=== PATIENT | male | born 1950 | race Caucasian/White ===

== ENCOUNTER 2024-12-30 10:49 | Inpatient (IN) | payer MEDICARE, OTHER, SELFPAY ==
[2024-12-30] VITALS (9 sets, daily range): BP systolic 115–149; BP diastolic 54–80; BMI 29.0; BMI 19.4; BMI 28.8
[2024-12-30 08:52] LABS: Hematocrit 28.2 % (39.0-52.0); Hemoglobin 9.9 g/dL (13.0-18.0); Mean Corp Hgb Conc. 35.1 g/dL (33.0-37.0); Mean Corpuscular Volume 92.5 fL (80.0-94.0); Nucleated Red Blood Cells % 0 % (-); Platelet Count 473 10^3/uL (130-400); Red Cell Dist. Width 14.6 % (11.5-14.5)
--- NOTE | 2024-12-30 09:01 | ED.GENMED ---
History of Present Illness
General
Chief Complaint: Male Genito-Urinary Symptoms
Source: patient
Exam Limitations: none
Time Seen by Provider: 12/30/24 08:59
Nursing documentation reviewed up to this point in time: agreed with
History of Present Illness
History of Present Illness:
Note:
CHIEF COMPLAINT(S)
Urinary retention since 1 a.m.
HISTORY OF PRESENT ILLNESS
The patient is a 74-year-old male who presents with urinary retention. He last urinated at 1 a.m. and has not been able to do so since. There is no prior history of urinary retention. Approximately three weeks ago, the patient underwent a Whipple
procedure. A bladder scan revealed 11 mL of fluid in the bladder, indicating minimal retention. The patient is not currently experiencing an urge to urinate and has no discomfort related to the retention. He is otherwise feeling well post-procedure.
Initial blood work is available with some results pending. The patient�s blood glucose was recently measured at 150 mg/dL, although it decreased slightly to 142 mg/dL. The patient is not presently receiving insulin.
EXTERNAL RECORDS REVIEWED
The patient underwent a Whipple procedure on December 11 at [facility].
CHRONIC MEDICAL CONDITIONS SIGNIFICANTLY AFFECTING CARE
The patient developed diabetes mellitus following his recent surgical procedure and is treated with insulin when necessary.
SOCIAL DETERMINANTS AFFECTING HEALTH
There are no specific social determinants affecting health mentioned in the conversation.
MEDICATIONS
Patient is unsure of his medications but mentioned taking a 'blood pressure pill.'
PHYSICAL EXAM
General: Alert, no acute distress.
Skin: Warm, dry.
Head: Normocephalic, atraumatic.
Neck: Supple, trachea midline.
Eye Ears, nose, mouth and throat: Oral mucosa moist.
Cardiovascular: Normal peripheral perfusion, no edema.
Respiratory: Respirations are non-labored.
Gastrointestinal: Abdomen nondistended.j Healing midline horizontal incision scar
Back: Normal range of motion, normal alignment.
Musculoskeletal: Normal ROM, normal strength.
Neurological: Alert and oriented to person, place, time, and situation, no focal neurological deficit observed.
Psychiatric: Cooperative, appropriate mood & affect.
PLAN
- Administer intravenous fluids to assist with urination.
- Monitor urine output and perform urine testing to check for infection.
- Continue observations of the patients blood glucose levels without administering insulin, unless further indicated.
- Determine necessity for hospital admission based on further findings.
DIFFERENTIAL DIAGNOSIS
The Differential Diagnosis includes, in no particular order and is not limited to:
1. Acute urinary retention
2. Post-surgical changes
3. Urinary tract infection
4. Diabetic autonomic neuropathy
5. Medication side effect
6. Bladder outlet obstruction
7. Neurogenic bladder
8. Renal insufficiency
9. Dehydration
10. Prostate enlargement
CARE-UPDATE
12/30/24 - 09:59
Patient remains symptomatic with hyponatremia. Unable to obtain a urine specimen at this time. Patient initially receiving normal saline. Contacted Nephrology for input. Plan to admit to hospitalist team for further management and monitoring.
EKG
My independent EKG interpretation is:
- Time of EKG: Not specified
- Rhythm: Sinus bradycardia
- Heart Rate: 56 bpm
- MI Interval: First-degree AV block noted
- QRS Duration: Normal
- Dewitt: Not specified
- Abnormalities: No evidence of ischemia detected
Disposition:
SUMMARY OF ENCOUNTER
The patient, a 74-year-old male, presented to the emergency department with urinary retention since 1 a.m. He had not urinated since then and denied any prior history of similar issues. Approximately three weeks prior, the patient underwent a
Whipple procedure. A bladder scan showed minimal retention of 11 mL. Blood glucose levels were slightly elevated, indicating diabetes mellitus post-surgery. The patient was otherwise stable, without experiencing discomfort or urgency to urinate.
Hyponatremia was noted, and normal saline was administered. Due to ongoing symptoms, hospital admission was considered for further management and monitoring.
DISPOSITION
Admit to hospitalist team for further management and monitoring.
ASSESSMENT
The patient is presenting with acute urinary retention possibly related to post-surgical changes following a Whipple procedure. Hyponatremia and newly developed diabetes following the surgery are additional concerns affecting the current medical
situation.
MANAGEMENT OF THE PATIENTS CARE WAS DISCUSSED WITH
Nephrology was contacted for input regarding the patients hyponatremia.
PLAN
- Administer intravenous fluids to assist with urination.
- Monitor urine output and check for infection through urine testing.
- Observe blood glucose levels carefully, with insulin to be withheld unless further indicated.
- Admit to the hospitalist team to manage hyponatremia and monitor overall condition.
INDEPENDENT REVIEW OF LABS AND INTERPRETATION OF TESTS
My independent review of blood glucose indicates mild elevation with levels at 150 mg/dL initially, later decreasing slightly to 142 mg/dL.
MEDICATION RECONCILIATION
- Normal saline was administered to address hyponatremia.
MEDICAL DECISION MAKING
- Complexity of Data Reviewed: Chronic conditions affecting care include post-surgical status following a Whipple procedure and newly developed diabetes mellitus. The differential diagnosis considered included acute urinary retention, post-surgical
changes, urinary tract infection, diabetic autonomic neuropathy, medication side effects, bladder outlet obstruction, neurogenic bladder, renal insufficiency, dehydration, and prostate enlargement.
Category 1
Non-emergency department records reviewed: Reviewed previous surgical records noting the Whipple procedure at [facility].
Category 3
Discussion of management with Nephrology was undertaken to address the patients hyponatremia.
DIAGNOSIS
- Acute urinary retention (R33)
- Hyponatremia (E87.1)
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
- Postprocedural state (Z98.890)
Phy Exam
Physical Exam
Physical Exam:
.
Course
Orders/Labs/Results
Orders:
Orders
12/30/24 08:43
Complete Blood Count/With Diff Urgent
Comprehensive Metabolic Panel Urgent
Serum Osmolality Urgent
Comment: ADD ON
12/30/24 09:00
Urinalysis Reflex To Culture Urgent
12/30/24 09:08
0.9% Sodium Chloride 1000 ml [Nss] 1,000 ml IV BOLUS
12/30/24 09:27
Urine Sodium Urgent
12/30/24 09:28
Add On- LAB Urgent
Tests Added?: serum osmolality
Osmolality, Random Urine Urgent
12/30/24 09:45
Electrocardiogram (*1) Urgent
Reason for Study: Other
Other Reason for Exam: low sodium
EKG- Treatment ONCE
Abnormal Lab Results
12/30/24
08:43
RBC 3.05 L 10^6/uL
(4.70-6.10)
Hgb 9.9 L g/dL
(13.0-18.0)
Hct 28.2 L %
(39.0-52.0)
MCH 32.5 H pg
(27.0-31.0)
RDW 14.6 H %
(11.5-14.5)
Plt Count 473 H 10^3/uL
(130-400)
Absolute Monos (auto) 1.4 H 10^3/uL
(0.1-0.6)
Lymphocytes % 18.2 L %
(20.5-51.1)
Monocytes % 15.2 H %
(1.7-9.3)
Sodium 119 L* mmol/L
(135-145)
Chloride 90 L mmol/L
(98-107)
Creatinine 0.5 L mg/dL
(0.7-1.3)
Glucose 135 H mg/dl
(70-99)
12/30/24 08:43
12/30/24 08:43
Vital Signs
Initial and Last Documented VS:
Initial Vital Signs
Temp Pulse Resp Pulse Ox
99.0 F 65 18 97
12/30/24 08:34 12/30/24 08:34 12/30/24 08:34 12/30/24 08:34
Last Documented Vital Signs
Temp Pulse Resp BP Pulse Ox
99.0 F 61 10 125/64 96
12/30/24 08:34 12/30/24 09:37 12/30/24 09:37 12/30/24 08:45 12/30/24 09:37
*Pulse Oximetry
SaO2: 97
Oxygen Mode of Delivery: Room air
Patient hypoxic: no
*Critical Care Note
Total Time (30-74mins, 75-104mins- exclusive of procedures): Not Applicable
ED Attending Note
-
Portions of this chart may have been created with voice recognition software.� Occasional wrong word or��sound alike� substitutions may have occurred due to the inherent limitations of voice recognition software.
Discharge Plan
Departure
Patient Disposition: Admit
Date of Disposition: 12/30/24
Time of Disposition: 09:56
Admit to: IMU
Presentation/result/management discussed w/ accepting MD/DO: Hospitalist
Patient with high blood pressure during this ER visit?: Yes
Discharge Problem:
Acute hyponatremia, Urinary urgency
Referrals:
UNKNOWN - PT DOES,NOT KNOW [Unknown Provider]
Interventions
Interventions:
*Risk Screen - Suicide Last Done: 12/30/24 08:40
*General Assessment Last Done: 12/30/24 08:40
*Neglect/Abuse Screening Last Done: 12/30/24 08:40
*ED- Fall Risk Assessment Last Done: 12/30/24 08:40
*ED COVID-19 Vaccine History Last Done: 12/30/24 08:40
ED-Male Genitourinary Assessment Last Done: 12/30/24 08:59
Discharge Date and Time
Print Language: GREEK
[2024-12-30] MEDS: NSS 1000 IV (09:10)
[2024-12-30 09:25] LABS: ALT (SGPT) 36 U/L (0-50); AST (SGOT) 42 U/L (17-59); Albumin 3.5 g/dl (3.5-5.0); Alkaline Phosphatase 113 U/L (38-126); Blood Urea Nitrogen 14 mg/dl (9-20); Calcium 9.1 mg/dl (8.4-10.2); Carbon Dioxide 22 mmol/L (22-30); Chloride 90 mmol/L (98-107); Estimated Creatinine Clearance 103 ml/min; Glucose 135 mg/dl (70-99); Potassium 5.1 mmol/L (3.5-5.1); Sodium 119 mmol/L (135-145); Total Protein 6.8 g/dl (6.3-8.2); eGFR > 60.00
--- NOTE | 2024-12-30 10:37 | HPS.HSE ---
Family Physician
-
Family Physician: CARLY Bunch
Chief Complaint
-
urinary retention
History of Present Illness
74yo M with PMHX of pancreatic duct CA s/p Whipple on 12/11/24 in [facility], HTN, GERD, CAD, new DM after pancreatic resection came with 1 day of urine dribling with dyscomfort in meatus and lower abdominal dyscomfort. Also found acute
hyponatremia, but does not report polydypsia or any significant postOP pains.
Medical History
Past Medical History
Past Medical History: Reports Other
Additional Past Medical History:
See HPI
Past Surgical History: Reports Other
Additional Past Surgical History:
see HPI
Social History
Tobacco: Non-smoker
Alcohol: Former
Drug: None
Family History
Family History: Not pertinent
Allergies / Home Medications
Allergies reflects when Allergies were last updated in [facility].
Home Medications with original date entered in [facility]
Allergy/Medication List:
Allergies
Allergy/AdvReac Type Severity Reaction Status Date / Time
No Known Allergies Allergy Unverified 12/30/24 08:42
Home Medications
amlodipine 10 mg tablet 10 mg PO DAILY 12/30/24
ascorbic acid (vitamin C) 1,000 mg tablet 1,000 mg PO DAILY 12/30/24
aspirin 81 mg tablet 81 mg PO DAILY 12/30/24
cholecalciferol (vitamin D3) 10 mcg (400 unit) tablet 10 mcg PO DAILY 12/30/24
ferrous sulfate 325 mg (65 mg iron) tablet 325 mg PO DAILY 12/30/24
insulin aspart U-100 100 unit/mL (3 mL) subcutaneous pen 1 sliding scale dose SC DIRECTED 12/30/24
lansoprazole 15 mg capsule,delayed release 15 mg PO DAILY 12/30/24
metoclopramide HCl 10 mg tablet 10 mg PO QID 12/30/24
oxycodone 5 mg tablet 5 mg PO QID 12/30/24
Review of Systems
-
History Source: Patient
A 12 point ROS was completed and negative except as noted: Yes
Abdomen/GI: Reports See HPI
: Reports See HPI
Physical Exam
Vital Signs
Vital Signs
Temp Pulse Resp BP Pulse Ox
99.0 F 59 14 122/54 97
12/30/24 08:34 12/30/24 10:00 12/30/24 10:00 12/30/24 10:00 12/30/24 10:00
Physical Exam
General: Well Developed, Well Nourished and No Apparent Distress
HEENT: NormoCephalic, Anicteric and Moist mucous membranes
Respiratory: Clear; No Wheezes or Crackles
Cardiac: S1/S2 and Regular Rhythm; No Tachycardia
GI: Soft, Non Tender, Non Distended and Other (well healing upper abdomen scar)
Genito-urinary: No costovertebral tender
Musculoskeletal: No Clubbing, No Cyanosis and No Edema
Skin: Warm
Neuro: Awake, Alert, Oriented and AO x 3
Psych: Calm
Laboratory Results
-
12/30/24 08:43
12/30/24 08:43
Laboratory Results
Total Bilirubin 0.4 mg/dl (0.2-1.3) 12/30/24 08:43
AST 42 U/L (17-59) 12/30/24 08:43
ALT 36 U/L (0-50) 12/30/24 08:43
Alkaline Phosphatase 113 U/L (38-126) 12/30/24 08:43
Data Reviewed
-
Lab Data: Labs Reviewed by me
Impression/Plan
-
A/P:
#Dysuria, concern for UTI
With recent Whipple procedure and new urinary retention - CT abd/pelvis reasonable
UA and Ucx pending at the time of admission
Start Abx after UA
#Hyponatremia, acute
could be 2/2 urinary retention
However bladder scan in ED showed minimal amount of urine
Pending straight cath
Nephrology consult
q6h BMP
target corrction 4-6meq/24h, will need plan after UOsm, August
S/P 1 L NS in ED
#New DM
Accuchecks, insulin SS, DM diet
PAtient also had continious blood glucose monitor
#Anemia
#Thrombocytosis
possibly reactive
follow CBC
Anemia w/u
FOBT
DVT ppx Lovenox
Full code
I have spent at least 78min reviewing chart, test results, communication with consultants, family, RN and providing direct patient care
[2024-12-30 10:59] LABS: Urine Character Clear (Clear)
--- NOTE | 2024-12-30 11:21 | CM ---
CM reviewed chart and met with pt and bedside in ED. Lives with in split level home, [address], has bathroom on both levels. Independent in ADLs, personal care and ambulation at baseline. Was discharged one week ago from [facility] after Whipple
procedure.
Confirms prescription coverage.
Currently has VN, ? [facility]. No hx SNF.
PCP: Yobani Nguyen
Pharmacy: [address]
Anticipate discharge home with resumption of VN, CM will continue.
[2024-12-30] MEDS: SODIUM CHLORIDE 3% 250 IV (11:35)
[2024-12-30 13:58] LABS: Blood Urea Nitrogen 11 mg/dl (9-20); Calcium 8.5 mg/dl (8.4-10.2); Carbon Dioxide 25 mmol/L (22-30); Chloride 92 mmol/L (98-107); Estimated Creatinine Clearance 103 ml/min; Glucose 145 mg/dl (70-99); Sodium 122 mmol/L (135-145); eGFR > 60.00
--- NOTE | 2024-12-30 14:15 | PTCARENOTE ---
12/30- Patient transferred and oriented to unit without issue. AAOX3, flat affect. Teley #49- currently sinus arrhythmia with BBB and PVCs. Skin=pale/warm/dry. +PulsesX4. Transverse anterior upper abdomen incision open to air, fully approximated
and almost healed. [place] with steristrips CDI. Some granulation forming at BL ends of incision. RLQ has softly granulated puncture wound from Whipple Drain, open to air. [place]/dry. Patient requests medical records, water and food. Educated patient
on diet and plan of care. Advised about process of obtaining medical records. He verbalized understanding. Denies any issues at this time.
[2024-12-30 15:27] LABS: Blood Urea Nitrogen 10 mg/dl (9-20); Calcium 9.1 mg/dl (8.4-10.2); Carbon Dioxide 24 mmol/L (22-30); Chloride 92 mmol/L (98-107); Estimated Creatinine Clearance 99 ml/min; Glucose 166 mg/dl (70-99); Potassium 5.8 mmol/L (3.5-5.1); Sodium 123 mmol/L (135-145); eGFR > 60.00
[2024-12-30] MEDS: STERILE WATER FOR INJECTION 10 ML IV (15:51)
[2024-12-30] MEDS: ROCEPHIN 1000 MG IV (15:51)
--- NOTE | 2024-12-30 15:58 | W.CON.NEPH ---
Consultation
-
Date/Time Consultation Requested: December 30, 2024 at 9 AM
Date/Time Consultation Performed: December 30, 2024 at 10 AM
Requesting Provider: Dr. Pierce
Performing Provider: Dr. Martin
Reason for Consultation: Hyponatremia
Medical History
-
Chief Complaint: Hyponatremia
History of Present Illness:
74yo M with PMHX of pancreatic duct CA s/p Whipple on 12/11/24 in [facility], HTN, GERD, CAD, new DM after pancreatic resection came with 1 day of urine dribling with dyscomfort in meatus and lower abdominal dyscomfort. Also found acute
hyponatremia, but does not report polydypsia or any significant postOP pains..
No obstructive pathology on imaging.
Renal consult for sodium 119
Past Medical History
PMHX of pancreatic duct CA s/p Whipple on 12/11/24 in [facility], HTN, GERD, CAD, new DM
Social History
Tobacco: Non-Smoker
Alcohol: None
Family History
Family History: Not Pertinent
Allergies / Home Medications
Allergy/AdvReac Type Severity Reaction Status Date / Time
No Known Allergies Allergy Unverified 12/30/24 08:42
�Medication �Instructions �Recorded �Confirmed �Type
amlodipine 10 mg tablet 10 mg PO DAILY Blood Pressure 12/30/24 12/30/24 History
ascorbic acid (vitamin C) 1,000 mg 1,000 mg PO DAILY Supplement 12/30/24 12/30/24 History
tablet
aspirin 81 mg tablet 81 mg PO DAILY Blood Clot 12/30/24 12/30/24 History
Prevention/Tx
cholecalciferol (vitamin D3) 10 10 mcg PO DAILY Supplement 12/30/24 12/30/24 History
mcg (400 unit) tablet
ferrous sulfate 325 mg (65 mg 325 mg PO DAILY Supplement 12/30/24 12/30/24 History
iron) tablet
insulin aspart U-100 100 unit/mL 1 sliding scale dose SC 12/30/24 12/30/24 History
(3 mL) subcutaneous pen DIRECTED Diabetes
lansoprazole 15 mg capsule,delayed 15 mg PO DAILY Gastrointestinal 12/30/24 12/30/24 History
release Issue
metoclopramide HCl 10 mg tablet 10 mg PO QID NAUSEA 12/30/24 12/30/24 History
oxycodone 5 mg tablet 5 mg PO QID Pain 12/30/24 12/30/24 History
Review of Systems
-
Generalized weakness abdominal pain
All other systems: Negative unless noted
Physical Exam
Vital Signs
Vital Signs
Temp Pulse Resp BP Pulse Ox
97.7 F 82 18 149/80 98
12/30/24 14:56 12/30/24 14:56 12/30/24 14:56 12/30/24 14:56 12/30/24 14:56
Lab Results
WBC 9.3 10^3/uL (4.8-10.8) 12/30/24 08:43
RBC 3.05 10^6/uL (4.70-6.10) L 12/30/24 08:43
Hgb 9.9 g/dL (13.0-18.0) L 12/30/24 08:43
Hct 28.2 % (39.0-52.0) L 12/30/24 08:43
Plt Count 473 10^3/uL (130-400) H 12/30/24 08:43
eGFR > 60.00 12/30/24 14:36
Albumin 3.5 g/dl (3.5-5.0) 12/30/24 08:43
Physical Exam
General no acute distress
HEENT no cephalic atraumatic extraocular muscle intact no scleral icterus no JVD neck supple
lungs clear to auscultation bilateral
heart regular S1-S2 positive
abdomen soft nontender positive bowel sounds
extremities no edema pulses present bilateral
Neurologically nonfocal alert and oriented x 3
Skin no lesions no abrasions no petechiae
Psych normal affect no bizarre behavior
Data Reviewed
-
CT Scan: Image Personally Visualized and interpreted
Labs: Labs Reviewed by me, Discussed with Physician, Discussed with Nurse, Discussed with Patient and Discussed with Family
Assessment/Plan
-
74yo M with PMHX of pancreatic duct CA s/p Whipple on 12/11/24 in [facility], HTN, GERD, CAD, new DM after pancreatic resection came with 1 day of urine dribling with dyscomfort in meatus and lower abdominal dyscomfort. Also found acute
hyponatremia, but does not report polydypsia or any significant postOP pains..
No obstructive pathology on imaging.
Renal consult for sodium 119
Impression.
Hyponatremia 119
Status post Whipple
New diabetes
Hypertension
Plan.
Status post 3% saline for about an hour and a half discontinued repeat stat labs 123 serum sodium
Continue to hold IV fluids
Recheck BMP every 4 to 6 hours to avoid overcorrection
Urine sodium 87 with a urine osmolality 345 although I believe this was collected while 3% saline was running and he did get normal saline prior to that
Repeat labs pending for 2000 hr
Discussed with all physicians involved
[2024-12-30 16:44] LABS: Glucose - Point of Care 160 mg/dl (70-99)
[2024-12-30] MEDS: NOVOLOG FLEXPEN-LOW RESISTANCE 1 UNITS SC (16:47)
--- NOTE | 2024-12-30 19:28 | W.PN.UPDATE ---
Update Note
Progress Note Update
Hyperkalemia with hyponatremia
Insulin IV, Dextrose, Lokelma
Check aldosterone, renin, TSH, Cortisol in AM
Since no hypotension, no hypoglycemia and no hypothermia - unlikely acute adrenal insufficiency, however cannot exclude indolent process
[2024-12-30] MEDS: LOKELMA 10 GRAM PO (20:01)
[2024-12-30 20:02] LABS: Glucose - Point of Care 141 mg/dl (70-99)
[2024-12-30] MEDS: DEXTROSE 50% SYRINGE 25 GRAMS IV (20:02)
[2024-12-30] MEDS: NOVOLIN R 0.1 UNITS IV (20:02)
[2024-12-30 21:11] LABS: Glucose - Point of Care 71 mg/dl (70-99)
[2024-12-30 21:28] LABS: Blood Urea Nitrogen 12 mg/dl (9-20); Calcium 8.7 mg/dl (8.4-10.2); Carbon Dioxide 22 mmol/L (22-30); Chloride 93 mmol/L (98-107); Estimated Creatinine Clearance 99 ml/min; Glucose 78 mg/dl (70-99); Potassium 5.3 mmol/L (3.5-5.1); Sodium 122 mmol/L (135-145); eGFR > 60.00
[2024-12-30 21:57] LABS: Glucose - Point of Care 115 mg/dl (70-99)
--- NOTE | 2024-12-30 22:00 | PTCARENOTE ---
NA 122 from lab draw, RN notified covering rivet passer Mauricio Martin who is aware, per covering rivet passer no new orders at this time. Next lab draw in AM.
[2024-12-30 22:28] LABS: Potassium 4.5 mmol/L (3.5-5.1)
[2024-12-30] MEDS: MELATONIN 5 MG PO (23:05)
[2024-12-30 23:58] LABS: Glucose - Point of Care 134 mg/dl (70-99)
[2024-12-31 01:49] LABS: Glucose - Point of Care 136 mg/dl (70-99)
[2024-12-31 02:30] LABS: Blood Urea Nitrogen 12 mg/dl (9-20); Calcium 9.0 mg/dl (8.4-10.2); Carbon Dioxide 22 mmol/L (22-30); Chloride 92 mmol/L (98-107); Estimated Creatinine Clearance 99 ml/min; Glucose 132 mg/dl (70-99); Potassium 4.9 mmol/L (3.5-5.1); Sodium 120 mmol/L (135-145); eGFR > 60.00
[2024-12-31 02:57] VITALS: BP 115/59
[2024-12-31] MEDS: TYLENOL 650 MG PO (04:10)
[2024-12-31 06:00] VITALS: BMI 28.9
[2024-12-31 07:20] VITALS: BP 126/70
[2024-12-31 07:23] LABS: Glucose - Point of Care 130 mg/dl (70-99)
[2024-12-31] MEDS: NOVOLOG FLEXPEN-LOW RESISTANCE SC ×2 (08:05→16:49)
[2024-12-31] MEDS: FLOMAX 0.4 MG PO (08:06)
[2024-12-31] MEDS: NORVASC 10 MG PO (08:06)
[2024-12-31] MEDS: ASPIR LOW (ENTERIC COATED) 81 MG PO (08:07)
[2024-12-31] MEDS: PROTONIX 20 MG PO (08:07)
[2024-12-31 08:42] LABS: Hematocrit 29.3 % (39.0-52.0); Hemoglobin 10.0 g/dL (13.0-18.0); Mean Corp Hgb Conc. 34.1 g/dL (33.0-37.0); Mean Corpuscular Volume 94.5 fL (80.0-94.0); Nucleated Red Blood Cells % 0 % (-); Platelet Count 497 10^3/uL (130-400); Red Cell Dist. Width 14.6 % (11.5-14.5); Reticulocyte Count 1.6 % (0.4-2.8)
[2024-12-31 09:13] LABS: ALT (SGPT) 38 U/L (0-50); AST (SGOT) 43 U/L (17-59); Albumin 3.8 g/dl (3.5-5.0); Alkaline Phosphatase 117 U/L (38-126); Blood Urea Nitrogen 12 mg/dl (9-20); Calcium 9.4 mg/dl (8.4-10.2); Carbon Dioxide 23 mmol/L (22-30); Chloride 89 mmol/L (98-107); Estimated Creatinine Clearance 99 ml/min; Glucose 126 mg/dl (70-99); Iron 49 ug/dl (49-181); LDH 321 U/L (120-246); Potassium 5.2 mmol/L (3.5-5.1); Sodium 121 mmol/L (135-145); Total Protein 7.3 g/dl (6.3-8.2); eGFR > 60.00
[2024-12-31 09:14] LABS: Blood Urea Nitrogen 12 mg/dl (9-20); Calcium 9.3 mg/dl (8.4-10.2); Carbon Dioxide 23 mmol/L (22-30); Chloride 89 mmol/L (98-107); Estimated Creatinine Clearance 99 ml/min; Glucose 126 mg/dl (70-99); Potassium 5.3 mmol/L (3.5-5.1); Sodium 121 mmol/L (135-145); eGFR > 60.00
[2024-12-31 09:24] LABS: Total Iron Binding Capacity 267 ug/dl (261-462)
[2024-12-31 09:48] LABS: Cortisol, Random 18.8 ug/dl
[2024-12-31 09:52] LABS: Ferritin 650.0 ng/ml (17.9-464.0)
[2024-12-31 10:23] LABS: Folate 11.4 ng/ml (2.76-20); Vitamin B12 > 1000 pg/ml (239-931)
[2024-12-31 11:00] VITALS: BP 122/65
[2024-12-31 11:22] LABS: Glucose - Point of Care 222 mg/dl (70-99)
[2024-12-31] MEDS: NOVOLOG FLEXPEN-LOW RESISTANCE 2 UNITS SC (11:33)
--- NOTE | 2024-12-31 12:20 | W.PN.HOSP.TC ---
Today's Communication/Plan
-
Monitor vital signs see plan
Nephrology to see today
Monitor sodium
Bladder scan
Continue antibiotic
renal/bladder US
Discussed with spouse
Assessment / Plan
Assessment / Plan
General: Well Developed, Well Nourished and No Apparent Distress
HEENT: NormoCephalic, Anicteric and Moist mucous membranes
Respiratory: Clear; No Wheezes or Crackles
Cardiac: S1/S2 and Regular Rhythm; No Tachycardia
GI: Soft, Non Tender, Non Distended and Other (well healing upper abdomen scar)
Musculoskeletal: No Edema
Neuro: Awake, Alert, Oriented and AO x 3
Psych: Calm
Dysuria, could be 2/2 cystitis or urinary retention
CT abdomen/pelvis with bladder inflammation consistent with cystitis or urinary retention. Advised patient to follow-up with urology outpatient.
Given his symptoms started on antibiotics
Bladder scan, Flomax for now. Check renal/bladder US
CT scan also with retroperitoneal, mesenteric, gastropathic ligament and ana hepatis lymphadenopathy. This was discussed with patient and spouse at bedside. Advised patient to follow-up with oncology. They already have name given by the surgeon
at [facility] which they will be following
#Hyponatremia, acute
Per records, discharge sodium was 129 from [facility]
Serial BMP per nephrology
Status post 3% 12/30
Nephrology following
Mild hyperkalemia
Monitor
#New DM
Accuchecks, insulin SS, DM diet
Patient also had continuous blood glucose monitor
#Anemia, suspect anemia of chronic disease
#Thrombocytosis
possibly reactive
DVT ppx Lovenox
Full code
I spent a total of 52 minutes with the patient or on the floor. More than 50% of this time involved counseling and coordination of care.
Anticipated Discharge: 24 - 48 hours
Subjective/Interval History
-
Date of Service: December 31, 2024
denies pain
Objective Data
-
Labs:
Laboratory Results
12/31/24 12/31/24 12/31/24
02:01 08:14 08:15
WBC 9.8
Hgb 10.0 L
Hct 29.3 L
Plt Count 497 H
Sodium 120 L 121 L
Potassium 4.9
Chloride 92 L
Carbon Dioxide 22
BUN 12
Creatinine 0.5 L
Glucose 132 H
Calcium 9.0
Total Bilirubin
AST
ALT
Alkaline Phosphatase
12/31/24 12/31/24 12/31/24
08:15 08:15 08:15
WBC
Hgb
Hct
Plt Count
Sodium 121 L
Potassium 5.2 H 5.3 H
Chloride 89 L 89 L
Carbon Dioxide 23
BUN
Creatinine
Glucose
Calcium
Total Bilirubin
AST
ALT
Alkaline Phosphatase
12/31/24 12/31/24 12/31/24
08:15 08:15 08:15
WBC
Hgb
Hct
Plt Count
Sodium
Potassium
Chloride
Carbon Dioxide 23
BUN 12 12
Creatinine 0.6 L 0.6 L
Glucose 126 H
Calcium
Total Bilirubin
AST
ALT
Alkaline Phosphatase
12/31/24 12/31/24
08:15 08:15
WBC
Hgb
Hct
Plt Count
Sodium
Potassium
Chloride
Carbon Dioxide
BUN
Creatinine
Glucose 126 H
Calcium 9.4 9.3
Total Bilirubin 0.3
AST 43
ALT 38
Alkaline Phosphatase 117
Vital Signs:
Vital Signs
Temp Pulse Resp BP Pulse Ox
98.4 F 78 18 122/65 94
12/31/24 11:00 12/31/24 11:00 12/31/24 11:00 12/31/24 11:00 12/31/24 11:00
--- NOTE | 2024-12-31 13:10 | W.PN.NEPH.PH ---
Today's Communication / Plan
-
samsca
Assessment/Plan
-
74yo M with PMHX of pancreatic duct CA s/p Whipple on 12/11/24 in [facility], HTN, GERD, CAD, new DM after pancreatic resection came with 1 day of urine dribling with dyscomfort in meatus and lower abdominal dyscomfort. Also found acute
hyponatremia, but does not report polydypsia or any significant postOP pains..
No obstructive pathology on imaging.
Renal consult for sodium 119
Impression.
Hyponatremia 119, 129 on dc from [facility]
Status post Whipple
New diabetes
Hypertension
Plan.
samsca today
40oz FR (all fluids, clarified to pt and )
follow BMP later today
-
-
Date of Service: December 31, 2024
CC / HPI / ROS
-
Chief Complaint:
hyponatremia
History of Present Illness:
Na low stable 121
BP stable
K up at 5.3
Hgb stable 10
Review of Systems:
no CP/SOB
no abd pain
Labs
-
Labs:
WBC 9.8 10^3/uL (4.8-10.8) 12/31/24 08:14
RBC 3.10 10^6/uL (4.70-6.10) L 12/31/24 08:14
Hgb 10.0 g/dL (13.0-18.0) L 12/31/24 08:14
Hct 29.3 % (39.0-52.0) L 12/31/24 08:14
Plt Count 497 10^3/uL (130-400) H 12/31/24 08:14
Sodium 121 mmol/L (135-145) L 12/31/24 08:15
Sodium 121 mmol/L (135-145) L 12/31/24 08:15
Potassium 5.2 mmol/L (3.5-5.1) H 12/31/24 08:15
Potassium 5.3 mmol/L (3.5-5.1) H 12/31/24 08:15
Chloride 89 mmol/L (98-107) L 12/31/24 08:15
Chloride 89 mmol/L (98-107) L 12/31/24 08:15
Carbon Dioxide 23 mmol/L (22-30) 12/31/24 08:15
Carbon Dioxide 23 mmol/L (22-30) 12/31/24 08:15
BUN 12 mg/dl (9-20) 12/31/24 08:15
BUN 12 mg/dl (9-20) 12/31/24 08:15
Creatinine 0.6 mg/dL (0.7-1.3) L 12/31/24 08:15
Creatinine 0.6 mg/dL (0.7-1.3) L 12/31/24 08:15
eGFR > 60.00 12/31/24 08:15
eGFR > 60.00 12/31/24 08:15
Glucose 126 mg/dl (70-99) H 12/31/24 08:15
Glucose 126 mg/dl (70-99) H 12/31/24 08:15
Calcium 9.3 mg/dl (8.4-10.2) 12/31/24 08:15
Calcium 9.4 mg/dl (8.4-10.2) 12/31/24 08:15
Albumin 3.8 g/dl (3.5-5.0) 12/31/24 08:15
Physical Exam
-
Vital Signs:
Vital Signs
Temp Pulse Resp BP Pulse Ox
98.4 F 78 18 122/65 94
12/31/24 11:00 12/31/24 11:00 12/31/24 11:00 12/31/24 11:00 12/31/24 11:00
Cardiovascular:: Regular rate and rhythm
Respiratory:: Bilateral: CTA
Lung Excursion:: Normal
Abdomen:: Nontender and Soft
Bowel Sounds:: Normal
Extremity Edema:: None: Bilateral:
[2024-12-31] MEDS: SAMSCA 15 MG PO (14:08)
[2024-12-31] MEDS: ROCEPHIN 1000 MG IV (15:09)
[2024-12-31] MEDS: STERILE WATER FOR INJECTION 10 ML IV (15:09)
[2024-12-31 15:18] VITALS: BP 124/62
--- NOTE | 2024-12-31 15:26 | CM ---
Pt chart reviewed. Pt currently out of the room for US. Pt remains on IV ABXs
Plan: Home with no needs
[2024-12-31 16:44] LABS: Glucose - Point of Care 139 mg/dl (70-99)
[2024-12-31 19:17] VITALS: BP 129/66
[2024-12-31] MEDS: COLACE 100 MG PO (19:23)
[2024-12-31 19:56] LABS: Blood Urea Nitrogen 15 mg/dl (9-20); Calcium 8.6 mg/dl (8.4-10.2); Carbon Dioxide 21 mmol/L (22-30); Chloride 92 mmol/L (98-107); Estimated Creatinine Clearance 99 ml/min; Glucose 179 mg/dl (70-99); Potassium 4.9 mmol/L (3.5-5.1); Sodium 120 mmol/L (135-145); eGFR > 60.00
[2024-12-31 21:14] LABS: Glucose - Point of Care 179 mg/dl (70-99)
[2024-12-31] MEDS: SODIUM CHLORIDE 3% 250 IV (22:18)
[2024-12-31 23:17] VITALS: BP 117/61
[2025-01-01 01:39] LABS: Blood Urea Nitrogen 14 mg/dl (9-20); Calcium 9.2 mg/dl (8.4-10.2); Carbon Dioxide 21 mmol/L (22-30); Chloride 98 mmol/L (98-107); Estimated Creatinine Clearance 99 ml/min; Glucose 161 mg/dl (70-99); Potassium 5.5 mmol/L (3.5-5.1); Sodium 128 mmol/L (135-145); eGFR > 60.00
--- NOTE | 2025-01-01 01:53 | PTCARENOTE ---
Sodium level of 128 resulted from lab, per covering taping supervisor Jakob Bernard stop the 3% sodium chloride infusion. Infusion stopped at this time.
[2025-01-01 02:59] VITALS: BP 104/58
[2025-01-01 06:00] VITALS: BMI 28.4
[2025-01-01 07:00] VITALS: BP 131/98
[2025-01-01 07:27] LABS: Hematocrit 30.1 % (39.0-52.0); Hemoglobin 10.2 g/dL (13.0-18.0); Mean Corp Hgb Conc. 33.9 g/dL (33.0-37.0); Mean Corpuscular Volume 94.1 fL (80.0-94.0); Nucleated Red Blood Cells % 0 % (-); Platelet Count 430 10^3/uL (130-400); Red Cell Dist. Width 14.5 % (11.5-14.5)
[2025-01-01 07:37] LABS: ALT (SGPT) 38 U/L (0-50); AST (SGOT) 40 U/L (17-59); Albumin 3.8 g/dl (3.5-5.0); Alkaline Phosphatase 106 U/L (38-126); Blood Urea Nitrogen 16 mg/dl (9-20); Calcium 9.3 mg/dl (8.4-10.2); Carbon Dioxide 23 mmol/L (22-30); Chloride 97 mmol/L (98-107); Estimated Creatinine Clearance 99 ml/min; Glucose 168 mg/dl (70-99); Magnesium 2.0 mg/dl (1.6-2.3); Potassium 5.3 mmol/L (3.5-5.1); Sodium 128 mmol/L (135-145); Total Protein 7.0 g/dl (6.3-8.2); eGFR > 60.00
[2025-01-01] MEDS: PROTONIX 20 MG PO (07:39)
[2025-01-01] MEDS: ASPIR LOW (ENTERIC COATED) 81 MG PO (07:39)
[2025-01-01] MEDS: NORVASC 10 MG PO (07:39)
[2025-01-01] MEDS: COLACE 100 MG PO ×2 (07:39→19:21)
[2025-01-01] MEDS: FLOMAX 0.4 MG PO (07:39)
[2025-01-01 07:40] LABS: Glucose - Point of Care 164 mg/dl (70-99)
[2025-01-01] MEDS: NOVOLOG FLEXPEN-LOW RESISTANCE 1 UNITS SC ×3 (07:43→16:49)
[2025-01-01] MEDS: LASIX 20 MG PO (09:16)
[2025-01-01] MEDS: OMNICEF 300 MG PO ×2 (09:16→19:21)
--- NOTE | 2025-01-01 11:05 | CM ---
Addendum entered by Blanca Banks 01/01/25 11:17:
Pt is current with [facility] [phone]; notified of patient's hospitalization. Referral sent today to resume care.
[facility]

Plan: Home with resumption of rehab services
Original Note:
Chart reviewed. Met pt while ambulating in the hallway. IMM given and form placed on the chart.
Plan: Home with no needs
[2025-01-01 11:19] VITALS: BP 107/66
[2025-01-01 11:28] LABS: Glucose - Point of Care 180 mg/dl (70-99)
[2025-01-01] MEDS: VISBIOME 1 CAP PO (11:47)
--- NOTE | 2025-01-01 12:29 | W.PN.NEPH.PH ---
Today's Communication / Plan
-
Lasix
Assessment/Plan
-
74yo M with PMHX of pancreatic duct CA s/p Whipple on 12/11/24 in [facility], HTN, GERD, CAD, new DM after pancreatic resection came with 1 day of urine dribling with dyscomfort in meatus and lower abdominal dyscomfort. Also found acute
hyponatremia, but does not report polydypsia or any significant postOP pains..
No obstructive pathology on imaging.
Renal consult for sodium 119
Impression.
Hyponatremia 119, 129 on dc from [facility]
Status post Whipple
New diabetes
Hypertension
Plan.
Lasix 20 mg daily
40oz FR (all fluids, clarified to pt and )
follow BMP
Low potassium diet
-
-
Date of Service: January 01, 2025
CC / HPI / ROS
-
Chief Complaint:
hyponatremia
History of Present Illness:
Na up to 128 after Samsca and low volume hypertonic
BP stable
K up at 5.4
Hgb stable
Review of Systems:
no CP/SOB
no abd pain
Labs
-
Labs:
WBC 8.4 10^3/uL (4.8-10.8) 01/01/25 06:14
RBC 3.20 10^6/uL (4.70-6.10) L 01/01/25 06:14
Hgb 10.2 g/dL (13.0-18.0) L 01/01/25 06:14
Hct 30.1 % (39.0-52.0) L 01/01/25 06:14
Plt Count 430 10^3/uL (130-400) H 01/01/25 06:14
Sodium 128 mmol/L (135-145) L 01/01/25 06:14
Potassium 5.3 mmol/L (3.5-5.1) H 01/01/25 06:14
Chloride 97 mmol/L (98-107) L 01/01/25 06:14
Carbon Dioxide 23 mmol/L (22-30) 01/01/25 06:14
BUN 16 mg/dl (9-20) 01/01/25 06:14
Creatinine 0.6 mg/dL (0.7-1.3) L 01/01/25 06:14
eGFR > 60.00 01/01/25 06:14
Glucose 168 mg/dl (70-99) H 01/01/25 06:14
Calcium 9.3 mg/dl (8.4-10.2) 01/01/25 06:14
Albumin 3.8 g/dl (3.5-5.0) 01/01/25 06:14
Physical Exam
-
Vital Signs:
Vital Signs
Temp Pulse Resp BP Pulse Ox
97.7 F 85 17 107/66 97
01/01/25 11:19 01/01/25 11:19 01/01/25 11:19 01/01/25 11:19 01/01/25 11:19
Cardiovascular:: Regular rate and rhythm
Respiratory:: Bilateral: Coarse
Lung Excursion:: Normal
Abdomen:: Nontender and Soft
Bowel Sounds:: Normal
Extremity Edema:: None: Bilateral:
--- NOTE | 2025-01-01 13:31 | W.PN.HOSP.TC ---
Today's Communication/Plan
-
Monitor vitals
See plan
Discussed with nephrology
Continue with Lasix
Monitor sodium closely
Discussed with spouse at bedside
Assessment / Plan
Assessment / Plan
General: Well Developed, Well Nourished and No Apparent Distress
HEENT: NormoCephalic, Anicteric and Moist mucous membranes
Respiratory: Clear; No Wheezes or Crackles
Cardiac: S1/S2 and Regular Rhythm; No Tachycardia
GI: Soft, Non Tender, Non Distended and Other (well healing upper abdomen scar)
Musculoskeletal: No Edema
Neuro: Awake, Alert, Oriented and AO x 3
Psych: Calm
Dysuria, could be 2/2 cystitis or urinary retention
CT abdomen/pelvis with bladder inflammation consistent with cystitis or urinary retention. Advised patient to follow-up with urology outpatient.
Given his symptoms started on antibiotics for short course
Bladder scan, Flomax for now. renal/bladder US without obstruction
CT scan also with retroperitoneal, mesenteric, gastropathic ligament and ana hepatis lymphadenopathy. This was discussed with patient and spouse at bedside. Advised patient to follow-up with oncology. They already have name given by the surgeon
at [place] which they will be following
#Hyponatremia, acute
Per records, discharge sodium was 129 from [facility]
Serial BMP per nephrology
Status post 3% 12/30, 12/31
s/p samsca 12/31. no on lasix. Discussed with nephrology and will closely monitor sodium. If improved tomorrow then possible discharge
Nephrology following
Mild hyperkalemia
Monitor; now on lasix
#New DM
Accuchecks, insulin SS, DM diet
Patient also had continuous blood glucose monitor
#Anemia, suspect anemia of chronic disease
#Thrombocytosis
possibly reactive
DVT ppx Lovenox
Full code
Anticipated Discharge: Within 24 hours
Subjective/Interval History
-
Date of Service: January 01, 2025
denies pain
Objective Data
-
Labs:
Laboratory Results
01/01/25 01/01/25
00:57 06:14
WBC 8.4
Hgb 10.2 L
Hct 30.1 L
Plt Count 430 H
Sodium 128 L D 128 L
Potassium 5.5 H 5.3 H
Chloride 98 97 L
Carbon Dioxide 21 L 23
BUN 14 16
Creatinine 0.6 L 0.6 L
Glucose 161 H 168 H
Calcium 9.2 9.3
Total Bilirubin 0.3
AST 40
ALT 38
Alkaline Phosphatase 106
Vital Signs:
Vital Signs
Temp Pulse Resp BP Pulse Ox
97.7 F 85 17 107/66 97
01/01/25 11:19 01/01/25 11:19 01/01/25 11:19 01/01/25 11:19 01/01/25 11:19
I&O
12/31/24 01/01/25 01/02/25
06:59 06:59 06:59
Intake Total 480 / 480
Balance 480 / 480
[2025-01-01 15:04] VITALS: BP 128/69
[2025-01-01 16:49] LABS: Glucose - Point of Care 151 mg/dl (70-99)
[2025-01-01 19:25] VITALS: BP 140/73
[2025-01-01 20:57] LABS: Glucose - Point of Care 182 mg/dl (70-99)
[2025-01-01 21:32] LABS: Sodium 124 mmol/L (135-145)
[2025-01-01] MEDS: SAMSCA 15 MG PO (22:16)
[2025-01-01 23:07] VITALS: BP 151/66
--- NOTE | 2025-01-01 23:27 | PTCARENOTE ---
2100 na level dropped to 124- [facility]- labs in am
--- NOTE | 2025-01-02 02:12 | PTCARENOTE ---
very compliant with fluid restriction- ambulates hallways sinus. bp wnl
[2025-01-02 02:58] VITALS: BP 146/67
[2025-01-02 05:00] VITALS: BMI 28.3
[2025-01-02 07:15] VITALS: BP 130/65
[2025-01-02] MEDS: NORVASC 10 MG PO (08:15)
[2025-01-02] MEDS: PROTONIX 20 MG PO (08:15)
[2025-01-02] MEDS: FLOMAX 0.4 MG PO (08:15)
[2025-01-02] MEDS: ASPIR LOW (ENTERIC COATED) 81 MG PO (08:15)
[2025-01-02] MEDS: COLACE 100 MG PO (08:15)
[2025-01-02] MEDS: LASIX 20 MG PO (08:15)
[2025-01-02] MEDS: OMNICEF 300 MG PO (08:15)
[2025-01-02 08:18] LABS: Glucose - Point of Care 140 mg/dl (70-99)
[2025-01-02] MEDS: NOVOLOG FLEXPEN-LOW RESISTANCE SC (08:19)
[2025-01-02 08:28] VITALS: BP 130/65
[2025-01-02 08:38] LABS: Hematocrit 26.9 % (39.0-52.0); Hemoglobin 9.2 g/dL (13.0-18.0); Mean Corp Hgb Conc. 34.2 g/dL (33.0-37.0); Mean Corpuscular Volume 94.7 fL (80.0-94.0); Nucleated Red Blood Cells % 0 % (-); Platelet Count 418 10^3/uL (130-400); Red Cell Dist. Width 14.5 % (11.5-14.5)
[2025-01-02 09:03] LABS: ALT (SGPT) 39 U/L (0-50); AST (SGOT) 40 U/L (17-59); Albumin 3.6 g/dl (3.5-5.0); Alkaline Phosphatase 96 U/L (38-126); Blood Urea Nitrogen 14 mg/dl (9-20); Calcium 9.1 mg/dl (8.4-10.2); Carbon Dioxide 26 mmol/L (22-30); Chloride 98 mmol/L (98-107); Estimated Creatinine Clearance 99 ml/min; Glucose 144 mg/dl (70-99); Potassium 4.9 mmol/L (3.5-5.1); Sodium 129 mmol/L (135-145); Total Protein 6.8 g/dl (6.3-8.2); eGFR > 60.00
[2025-01-02 11:17] LABS: Glucose - Point of Care 169 mg/dl (70-99)
[2025-01-02] MEDS: NOVOLOG FLEXPEN-LOW RESISTANCE 1 UNITS SC (11:28)
[2025-01-02 11:30] VITALS: BP 136/70
[2025-01-02] MEDS: VISBIOME 1 CAP PO (11:30)
--- NOTE | 2025-01-02 13:09 | W.PN.NEPH.PH ---
Today's Communication / Plan
-
ok for dc fu with pcp labs 1 wk
Assessment/Plan
-
74yo M with PMHX of pancreatic duct CA s/p Whipple on 12/11/24 in [facility], HTN, GERD, CAD, new DM after pancreatic resection came with 1 day of urine dribling with dyscomfort in meatus and lower abdominal dyscomfort. Also found acute
hyponatremia, but does not report polydypsia or any significant postOP pains..
No obstructive pathology on imaging.
Renal consult for sodium 119
Impression.
Hyponatremia 119, 129 on dc from [facility]
Status post Whipple
New diabetes
Hypertension
Plan.
Lasix 20 mg daily
40oz FR (all fluids, clarified to pt and )
follow BMP
ok for dc fu with pcp labs 1 wk
-
-
Date of Service: January 02, 2025
CC / HPI / ROS
-
Chief Complaint:
hyponatremia
History of Present Illness:
Na up to 128 after Samsca and low volume hypertonic
BP stable
K up at 5.4
Hgb stable
Review of Systems:
no CP/SOB
no abd pain
Labs
-
Labs:
WBC 7.5 10^3/uL (4.8-10.8) 01/02/25 07:34
RBC 2.84 10^6/uL (4.70-6.10) L 01/02/25 07:34
Hgb 9.2 g/dL (13.0-18.0) L 01/02/25 07:34
Hct 26.9 % (39.0-52.0) L 01/02/25 07:34
Plt Count 418 10^3/uL (130-400) H 01/02/25 07:34
Sodium 129 mmol/L (135-145) L 01/02/25 07:34
Potassium 4.9 mmol/L (3.5-5.1) 01/02/25 07:34
Chloride 98 mmol/L (98-107) 01/02/25 07:34
Carbon Dioxide 26 mmol/L (22-30) 01/02/25 07:34
BUN 14 mg/dl (9-20) 01/02/25 07:34
Creatinine 0.6 mg/dL (0.7-1.3) L 01/02/25 07:34
eGFR > 60.00 01/02/25 07:34
Glucose 144 mg/dl (70-99) H 01/02/25 07:34
Calcium 9.1 mg/dl (8.4-10.2) 01/02/25 07:34
Albumin 3.6 g/dl (3.5-5.0) 01/02/25 07:34
Physical Exam
-
Vital Signs:
Vital Signs
Temp Pulse Resp BP Pulse Ox
98.1 F 72 16 136/70 97
01/02/25 11:30 01/02/25 11:30 01/02/25 11:30 01/02/25 11:30 01/02/25 11:30
Cardiovascular:: Regular rate and rhythm
Respiratory:: Bilateral: CTA
Lung Excursion:: Normal
Abdomen:: Nontender and Soft
Bowel Sounds:: Normal
Extremity Edema:: None: Bilateral:
--- NOTE | 2025-01-02 13:41 | W.PN.HOSP.TC ---
Addendum entered and electronically signed by Yamil Rosales MD 01/02/25 15:59:
pancreatic duct CA s/p Whipple
Addendum entered and electronically signed by Yamil Rosales MD 01/02/25 13:58:
dc further abx
urology f/u outpatient
time of discharge 38minutes
Original Note:
Today's Communication/Plan
-
Monitor vitals
See plan
Fluid restriction, p.o. Lasix
Discussed with nephrology, discharge today with outpatient BMP with PCP next week
cw flomax for now; urology f/u outpatient
Assessment / Plan
Assessment / Plan
General: Well Developed, Well Nourished and No Apparent Distress
HEENT: NormoCephalic, Anicteric and Moist mucous membranes
Respiratory: Clear; No Wheezes or Crackles
Cardiac: S1/S2 and Regular Rhythm; No Tachycardia
GI: Soft, Non Tender, Non Distended and Other (well healing upper abdomen scar)
Musculoskeletal: No Edema
Neuro: Awake, Alert, Oriented and AO x 3
Psych: Calm
Dysuria, could be 2/2 cystitis or urinary retention
CT abdomen/pelvis with bladder inflammation consistent with cystitis or urinary retention. Advised patient to follow-up with urology outpatient.
Given his symptoms started on antibiotics for short course
Bladder scan renal/bladder US without obstruction, no prostate enlargement. cw Flomax
CT scan also with retroperitoneal, mesenteric, gastropathic ligament and ana hepatis lymphadenopathy. This was discussed with patient and spouse at bedside. They have discussed with patient surgeon from [place] and they will follow-up
#Hyponatremia, acute
Per records, discharge sodium was 129 from [facility]
Serial BMP per nephrology
Status post 3% 12/30, 12/31
s/p samsca 12/31,01/01. now on lasix. Discussed with nephrology, low-dose Lasix and fluid restriction to 48ounces. Discharge today. Outpatient BMP with PCP
Nephrology following
Mild hyperkalemia
Monitor; now on lasix
#New DM
Accuchecks, insulin SS, DM diet
Patient also had continuous blood glucose monitor
#Anemia, suspect anemia of chronic disease
#Thrombocytosis
possibly reactive
DVT ppx Lovenox
Full code
Anticipated Discharge: Today
Subjective/Interval History
-
Date of Service: January 02, 2025
Denies pain
Objective Data
-
Labs:
Laboratory Results
01/02/25
07:34
WBC 7.5
Hgb 9.2 L
Hct 26.9 L
Plt Count 418 H
Sodium 129 L
Potassium 4.9
Chloride 98
Carbon Dioxide 26
BUN 14
Creatinine 0.6 L
Glucose 144 H
Calcium 9.1
Total Bilirubin 0.3
AST 40
ALT 39
Alkaline Phosphatase 96
Vital Signs:
Vital Signs
Temp Pulse Resp BP Pulse Ox
98.1 F 72 16 136/70 97
01/02/25 11:30 01/02/25 11:30 01/02/25 11:30 01/02/25 11:30 01/02/25 11:30
I&O
01/01/25 01/02/25 01/03/25
06:59 06:59 06:59
Intake Total 480 / 480 1695 / 1695
Balance 480 / 480 1695 / 1695
--- NOTE | 2025-01-02 13:48 | CM ---
Addendum entered by Blanca Banks 01/02/25 14:25:
[facility] notified of today's discharge.
Original Note:
Chart reviewed. Met with pt and at bedside. Probable d/c/ today. Cleared by nephrology for D/C. Confirmed patient is current with [facility]
Plan: Home with HC services through [facility].
--- NOTE | 2025-01-02 13:58 | W.DCSUMMARY ---
Discharge Summary
Discharge Data
Date of Admission: 12/30/24
Date of Discharge: 01/02/25
-
Pending Results: No
Hospital Course
74-year-old male with past medical history of diabetes mellitus, anemia, pancreatic duct CA s/p [place] came to the hospital with dysuria and urinary retention along with acute hyponatremia. For hyponatremia patient was seen by nephrology
throughout hospitalization and required 3% saline along with Samsca. Patient was later put on Lasix for fluid restriction. For his dysuria CT scan initially showed bladder inflammation consistent with cystitis or urinary retention. UA was done
which was negative however given patient's symptoms he was treated with antibiotics. Bladder scan/renal scan was done which was without obstruction and there was no prostate enlargement. CT scan was also consistent with retroperitoneal,
mesenteric, gastropathic ligament and ana pedis adenopathy which was discussed with patient and family and were instructed to follow-up with them from surgeon from [place] who did the recent Whipple's. Over time patient's symptoms continue to
improve, he was then discharged home with instructions to follow-up with all his physicians outpatient.
Discharge Plan
-
Patient Disposition: Home (Routine Discharge)
Discharge Diagnosis/Procedures: Acute hyponatremia
Dysuria, suspect urinary retention,cystitis
Hyperkalemia
Condition: Fair
Diet: As tolerated and Restrict fluids to 48 oz
Activity: As tolerated
Driving Restrictions: As prior to admission
Bathing Restrictions: None
Blood Work: BMP next week with primary care provider
Activity Restrictions/Additional Instructions:
Follow-up with your surgeon outpatient. Can decide if needs to follow-up with oncology
Continue with daily Lasix and fluid restriction. If sodium is persistently normal then can be stopped
Referrals:
Mauricio Martin DO [Active, Nephrology]
Homero Chairez Jr., MD [Active, Urology]
Yobani Nguyen CRNP [Family Provider, General] - in less than 1 week
Prescriptions:
New
acetaminophen 325 mg Tablet
650 mg PO Q4HPRN PRN (Reason: mild pain/DUFFY/temp> 100.4F) Qty: 0 0RF
furosemide 20 mg Tablet
20 mg PO DAILY Qty: 14 0RF
tamsulosin [Flomax] 0.4 mg capsule
0.4 mg PO DAILY Qty: 30 0RF
docusate sodium 100 mg Capsule
100 mg PO BID Qty: 0 0RF
Continued
ascorbic acid (vitamin C) 1,000 mg Tablet
1,000 mg PO DAILY
amlodipine 10 mg Tablet
10 mg PO DAILY
ferrous sulfate 325 mg (65 mg iron) Tablet
325 mg PO DAILY
lansoprazole 15 mg Capsule,Delayed Release(Dr/Ec)
15 mg PO DAILY
aspirin 81 mg Tablet
81 mg PO DAILY
cholecalciferol (vitamin D3) 10 mcg (400 unit) Tablet
10 mcg PO DAILY
oxycodone 5 mg Tablet
5 mg PO QID
insulin aspart U-100 100 unit/mL (3 mL) Insulin Pen
1 sliding scale dose SC DIRECTED
Held
lisinopril 40 mg Tablet
40 mg PO QPM
Hold Instructions: restart if SBP>140
Discontinued
metoclopramide HCl 10 mg Tablet
10 mg PO QID
Discharge Orders:
Discharge Patient (As Directed); Ordered 01/02/25
Ordered By: Yamil Rosales
Discharge Date and Time
Discharge Date/Time: 01/02/25 16:45
Print Language: LATVIAN
[2025-01-02 19:09] LABS: Aldosterone/Renin Activ Ratio 0.6 ratio (<=25.0); Renin Activity Results 11.7 ng/mL/hr
== END 2025-01-02 16:45 | disposition home health service (06) | DRG 690 ==
LOC: 4 WEST ACU 10:49
PROVIDERS: Specialist; ADMITTING PHYSICIAN Internal Medicine; ATTENDING PHYSICIAN Internal Medicine; CONSULT PHYSICIAN Internal Medicine Nephrology; EMERGENCY PHYSICIAN Emergency Medicine; FAMILY PHYSICIAN Nurse Practitioner Gerontology
DX: N30.90 Cystitis, unspecified without hematuria (principal); E87.1 Hypo-osmolality and hyponatremia; D63.8 Anemia in other chronic diseases classified elsewhere; D75.839 Thrombocytosis, unspecified; E11.9 Type 2 diabetes mellitus without complications; I10 Essential (primary) hypertension; E87.5 Hyperkalemia; R30.0 Dysuria; R33.9 Retention of urine, unspecified; I25.10 Atherosclerotic heart disease of native coronary artery without angina pectoris; K21.9 Gastro-esophageal reflux disease without esophagitis; Z79.82 Long term (current) use of aspirin; Z79.899 Other long term (current) drug therapy; Z90.411 Acquired partial absence of pancreas
CPT/HCPCS: 74177; 76770; 80048; 80053; 81003; 82088; 82533; 82607; 82728; 82746; 82962; 83540; 83550; 83615; 83735; 83930; 83935; 84132; 84244; 84295; 84300; 84443; 85025; 85045; 93005; 96360; 99285; Q9967